=== PATIENT | female | born 1955 | race Caucasian/White ===

== ENCOUNTER 2016-10-09 10:01 | Outpatient (CLI) | payer OTHER ==
[~2016-10-09 10:01] MED LIST: CALCIUM PO; COQ PO; MAGNESIUM PO; MULTIPLE VITAMIN PO; POTASSIMIN75 MG PO; RED YEAST RICE PO; [UNRECOGNIZED DRUG - OTHER] PO
--- NOTE | 2016-10-09 11:05 | DIAGNOSTIC IMAGING REPORT ---
PROCEDURE: XR ELBOW 3 OR 4 VIEWS - LEFT INDICATION: ILNAR NERVE SYNDROME TECHNIQUE: Four views. COMPARISON: None. FINDINGS: Osseous structures and joint spaces are normal. No evidence of an effusion. IMPRESSION: 1. Normal left elbow.
== END 2016-10-09 23:00 ==
LOC: XR SRH 10:01
DX: G56.22 Lesion of ulnar nerve, left upper limb (principal)